=== PATIENT | male | born 2000 | race Caucasian/White ===

== ENCOUNTER 2025-06-09 17:53 | Emergency (ER) | payer BC, SELFPAY ==
[2025-06-09 18:08] VITALS: BP 136/79; PULSE 82; RESP 16; TEMP 36.8; O2SAT 100
--- NOTE | 2025-06-09 18:15 | ED.MALEGU ---
HPI - Male Genitourinary General Chief complaint: Urogenital-Male Stated complaint: Uti Symptoms Time Seen by Provider: 06/09/25 18:15 Source: patient Mode of arrival: ambulatory Limitations: no limitations History of Present Illness HPI Narrative: 24 yo M presents with c/o stinging to tip of penis for about 2 wks. No urinary symptoms. No discharge. Sexually active. Thinks he has UTI. All systems reviewed and negative except as noted above. PMFSH Comments At time of signature, agree with nursing past medical, surgical, social and family history. There is no relevant family history pertinent to the presenting complaint. Exam Narrative: GENERAL: This is a well-nourished, well-developed patient, in no apparent distress. HEAD: normocephalic, atraumatic. EYES: PERRL. Sclera clear/white. Vision is grossly intact. EARS: External ears normal NOSE: External nose normal NECK: Neck supple, non-tender without lymphadenopathy, masses or thyromegaly. CARDIOVASCULAR: Regular rate and rhythm without murmurs, gallops, or rubs. RESPIRATORY: Clear to auscultation. Breath sounds equal bilaterally. No wheezes, rales, or rhonchi. SKIN: warm, Dry, intact with no suspicious lesions or rash, good texture and turgor. NEURO: awake, alert, and oriented to person, place and time. There were no obvious focal neurologic abnormalities. EXTREMITIES: No joint tenderness, effusion, or edema noted. Course Course Level of Care: Express Care Visit Vital Signs Vital signs: Vital Signs Temperature 36.8 C 06/09/25 18:08 Pulse Rate 82 06/09/25 18:08 Respiratory Rate 16 06/09/25 18:08 Blood Pressure 136/79 06/09/25 18:08 Pulse Oximetry 100 06/09/25 18:08 Temperature 36.8 C 06/09/25 18:08 Pulse Rate 82 06/09/25 18:08 Respiratory Rate 16 06/09/25 18:08 Blood Pressure 136/79 06/09/25 18:08 Pulse Oximetry 100 06/09/25 18:08 Reviewed MDM - Male Genitourinary MDM Narrative Medical decision making narrative: Normal urinalysis. Gonorrhea, chlamydia and Trichomonas testing pending. Patient does not want antibiotic treatment for STI unless he has a positive result. Differential Diagnosis Differential diagnosis: Likely urinary tract infection, urethritis, epididymitis and other (Sexually transmitted infection) Lab Data Labs: Lab Results 06/09/25 Range/Units 18:16 POC Urine Color Yellow POC Urine Clarity Clear POC Urine pH 7.0 POC Ur Specif [place] 1.020 POC Urine Protein Negative (Negative) POC Ur Glucose (UA) Negative (Negative) POC Urine Ketones Negative (Negative) POC Urine Blood Negative (Negative) POC Urine Nitrite Negative (Negative) POC Urine Bilirubin Negative (Negative) POC Urine Urobilinogen 0.2 POC U Leukocyte Esteras Negative (Negative) Discharge Plan Discharge Clinical Impression: Concern about sexually transmitted infection in male without diagnosis Patient Disposition: Home Condition: Stable Instructions: Sexually Transmitted Diseases (ED) Additional Instructions: Your urinalysis was normal. There were no abnormal results concerning for urinary tract infection. Gonorrhea, chlamydia and Trichomonas test ordered. Results will take 48-72 hours. If you have a positive result we will call you at that time and prescribed an antibiotic. Avoid all sexual activity until you know your result. If you do have a positive result you will need to inform her partner so they can also be treated. Patient Language: [place] Follow-up/Referrals: PHYSICIAN,[employer] [Primary Care Provider, Internal Medicine] Time of Disposition: 18:35
[2025-06-09 18:27] LABS: EDUAAPPEAR Clear; EDUABILI Negative (Negative); EDUABLOOD Negative (Negative); EDUACOLOR1 Yellow; EDUAGLUCOSE Negative (Negative); EDUAKETONE Negative (Negative); EDUALEUKO Negative (Negative); EDUANITRATE Negative (Negative); EDUAPH 7.0; EDUAPROTEIN Negative (Negative); EDUASPGRAVITY 1.020; EDUAUROBILI 0.2
[2025-06-10 12:35] LABS: Trichomonas Vag PCR NOT DETECTED (NOT DETECTE)
== END 2025-06-09 18:43 | disposition home or self-care (01) ==
PROVIDERS: Emergency Provider Nurse Practitioner Family
DX: Z20.2 Contact with and (suspected) exposure to infections with a predominantly sexual mode of transmission (principal)
CPT/HCPCS: 81003; 87086; 87491; 87591; 87661; 99203; G0463